=== PATIENT | female | born 1985 | race Caucasian/White ===

== ENCOUNTER 2019-06-11 10:27 | Emergency (ER) | payer MEDICAID ==
[2019-06-11] MEDS ORDERED: HYDROmorphone 1 MG/ML CARPUJECT IM STA (10:53)
[2019-06-11] MEDS ORDERED: ONDANSETRON ODT 4 MG TABLET TL STA (10:53)
[2019-06-11] MEDS ORDERED: ONDANSETRON 4 MG/2 ML VIAL IVP STA (11:59)
[2019-06-11] MEDS ORDERED: HYDROmorphone 1 MG/ML CARPUJECT IVP STA (11:59)
[2019-06-11] MEDS ORDERED: SODIUM CHLORIDE 0.9% 1,000 ML IV ONE (11:59)
[2019-06-11 12:37] LABS: BASOPHILS % (AUTO) 0.3 %; HGB - HEMOGLOBIN 14.8 g/dL (12.0-16.0); LYMPHOCYTES # (AUTO) 0.7 10^3/uL (1.5-3.5); LYMPHOCYTES % (AUTO) 6.3 %; MEAN CORPUSCULAR HEMOGLOBIN 29.2 pg (27.0-31.0); MEAN CORPUSCULAR HGB CONC 34.7 g/dL (32.0-36.0); MEAN CORPUSCULAR VOLUME 84.2 fL (81.0-99.0); MEAN PLATELET VOLUME 10.3 fL (7.9-10.8); MONOCYTES # (AUTO) 0.4 10^3/uL (0.0-1.0); NEUTROPHILS # (AUTO) 10.7 10^3/uL (1.5-6.6); NEUTROPHILS % (AUTO) 90.1 %; RED BLOOD COUNT 5.06 10^6/uL (4.20-5.40); RED CELL DISTRIBUTION WIDTH 12.6 % (12.0-15.0); WHITE BLOOD COUNT 11.8 x10^3/uL (4.8-10.8)
--- NOTE | 2019-06-11 12:49 | ED Physician Documentation ---
PD HPI NVD - Stated complaint Stated Complaint: MED WITHDRAWAL - Chief complaint Chief Complaint: General - History obtained from History obtained from: Patient - History of Present Illness Timing - onset: How many days ago (1) Timing - duration: Days (1) Timing - details: Gradual onset, Still present Associated symptoms: Abdominal pain, Dizzy, Loss of appetite, Other (pain all over) Contributing factors: Other (narcotic withdrawal.) Improved by: Other (nothing) Similar symptoms before: Has not had sx before Recently seen: Clinic - Additonal information Additional information: 33-year-old female on Suboxone has been getting her Suboxone at a clinic in [place] through Dr. Alexander and she has had to move down to [facility] to be in quarantine with her parents and she has run out of her Suboxone she has called her clinic they have told her it is available at [facility] and it is not. She is not able to get a hold of anyone in the clinic. She has been vomiting for 12 hours she has been curled in a position and she feels she needs some fluids and medication. She hurts all over. Review of Systems Constitutional: denies: Fever Eyes: denies: Decreased vision Ears: denies: Ear pain Nose: denies: Rhinorrhea / runny nose, Congestion Throat: denies: Sore throat Cardiac: denies: Chest pain / pressure Respiratory: denies: Dyspnea, Cough GI: reports: Abdominal Pain, Nausea, Vomiting : denies: Dysuria, Frequency Skin: denies: Rash Musculoskeletal: reports: Back pain, Extremity pain, Joint pain Neurologic: denies: Generalized weakness, Focal weakness, Numbness PD PAST MEDICAL HISTORY - Past Medical History Past Medical History: Yes Cardiovascular: None Respiratory: None Endocrine/Autoimmune: None GI: GERD, Ulcers HEENT: None Musculoskeletal: None - Past Surgical History Past Surgical History: Yes HEENT: Tonsil/Adenoidectomy - Present Medications Home Medications: Ambulatory Orders Medication Instructions Recorded Confirmed Citalopram [CeleXA] 10 mg PO DAILY 08/29/15 01/04/16 Buprenorphine HCl/Naloxone HCl 2.5 strip SL DAILY 06/11/19 06/11/19 [Suboxone 8 mg-2 mg Sl Film] - Allergies Allergies/Adverse Reactions: Allergies Allergy/AdvReac Type Severity Reaction Status Date / Time Penicillins AdvReac Unknown Rash Verified 06/11/19 10:34 - Social History Does the pt smoke?: Yes Smoking Status: Current every day smoker Does the pt drink ETOH?: No Does the pt have substance abuse?: Yes - Immunizations Immunizations are current?: Yes - POLST Patient has POLST: No PD ED PE NORMAL - Vitals Vital signs reviewed: Yes (Hypertensive) - General General: Alert and oriented X 3, Other (33-year-old female who is hysterically screaming for pain medication. She has akathetic, appears anxious and is tearful. She is curled in the position and crying) - HEENT HEENT: Atraumatic, PERRL, EOMI - Neck Neck: Supple, no meningeal sign, No bony TTP - Cardiac Cardiac: RRR, No murmur - Respiratory Respiratory: No respiratory distress, Clear bilaterally - Abdomen Abdomen: Soft, Other (Epigastric tenderness) - Back Back: No CVA TTP, No spinal TTP - Derm Derm: Normal color, Warm and dry, No rash - Extremities Extremities: No deformity, No edema - Neuro Neuro: Alert and oriented X 3, wholesale account executive 2-12 intact, No motor deficit, No sensory deficit, Normal speech Eye Opening: Spontaneous Motor: Obeys Commands Verbal: Oriented GCS Score: 15 - Psych Psych: Normal mood, Normal affect Results - Vitals Vitals: Vital Signs - 24 hr 06/11/19 06/11/19 06/11/19 10:35 12:50 13:37 Temperature 36.9 C Heart Rate 80 74 85 Respiratory 22 16 16 Rate Blood Pressure 128/109 H 117/54 L 107/65 O2 Saturation 96 100 98 Oxygen O2 Source Room air - Labs Labs: Laboratory Tests 06/11/19 06/11/19 12:20 13:08 WBC 11.8 H RBC 5.06 Hgb 14.8 Hct 42.6 MCV 84.2 MCH 29.2 MCHC 34.7 RDW 12.6 Plt Count 206 MPV 10.3 Neut # (Auto) 10.7 H Lymph # (Auto) 0.7 L [place] # (Auto) 0.4 Eos # (Auto) 0.0 Baso # (Auto) 0.0 Absolute Nucleated RBC 0.00 Nucleated RBC % 0.0 Manual Slide Review Indicated Sodium 138 Potassium 3.7 Chloride 107 Carbon Dioxide 13 L Anion Gap 18.0 H BUN QNS Creatinine QNS Estimated GFR (MDRD) QNS Glucose 100 Calcium 8.9 Total Bilirubin QNS AST QNS ALT QNS Alkaline Phosphatase 18 L Total Protein QNS Albumin QNS Globulin QNS Albumin/Globulin Ratio QNS Lipase 19 L PD MEDICAL DECISION MAKING - ED course Complexity details: reviewed old records, reviewed results, re-evaluated patient, considered differential, d/w patient ED course: 33-year-old female usually a resident up in [place] is on Suboxone and she has not had her Suboxone for 2 days. I did check her AT sheet and it appears she has been getting Suboxone every 6 days and she subsequently got a prescription on the of this month and it should have run out by the . This is all consistent with the patient's story. She arrives to the emergency department hysterical and crying. She is administered Dilaudid 1 mg IM and Zofran 4 mg sublingual. She has enough relief to be able to give a history and she is requesting fluids. An IV is begun she will get a second milligram of Dilaudid and Zofran and fluid. We do not have Suboxone available here in the emergency department. Our plan today is to give enough relief for the patient to get a chance to get her suboxone. Departure - Departure Disposition: 01 Home, Self Care Clinical Impression: Acute narcotic withdrawal Condition: Stable Instructions: ED Withdrawal Narcotic Follow-Up: Your, doctor [Other] Comments: We are not able to provide a prescription for Suboxone through the emergency department. You will need to follow-up with your regular prescriber for your Suboxone. Discharge Date/Time: 06/11/19 13:44
[2019-06-11 13:04] LABS: PLT - PLATELET COUNT 206 10^3/uL (130-450)
[2019-06-11 13:20] LABS: ALKALINE PHOSPHATASE 18 IU/L (42-121); CALCIUM 8.9 mg/dL (8.5-10.3); CARBON DIOXIDE - CO2 13 mmol/L (21-32); CHLORIDE 107 mmol/L (101-111); GLUCOSE 100 mg/dL (70-100); LIPASE 19 U/L (22-51); SODIUM 138 mmol/L (135-145)
[2019-06-11 13:29] LABS: ALBUMIN QNS g/dL (3.2-5.5); ALBUMIN/GLOBULIN RATIO QNS (1.0-2.2); ALT ALANINE AMINOTRANSFERASE QNS IU/L (10-60); AST ASPARTATE AMINOTRANSFERASE QNS IU/L (10-42); BILIRUBIN,TOTAL QNS mg/dL (0.2-1.0); BUN - BLOOD UREA NITROGEN QNS mg/dL (6-20); CREATININE QNS mg/dL (0.4-1.0); TOTAL PROTEIN QNS g/dL (6.7-8.2)
[2019-06-11] MEDS ORDERED: LORazepam 2 MG/ML VIAL IVP STA (13:29)
[2019-06-11 13:37] VITALS: BP 107/65
== END 2019-06-11 13:44 | disposition home or self-care (01) ==
LOC: ED 10:27
DX: F19.239 Other psychoactive substance dependence with withdrawal, unspecified (principal); F17.200 Nicotine dependence, unspecified, uncomplicated
CPT/HCPCS: 80053; 83690; 85025; 96372; 96374; 96375; 99283; 99284; J1170; J2060; Q0162

== ENCOUNTER 2020-01-05 23:49 | Outpatient (CLI) | payer MEDICAID | END 2020-01-05 23:50 | disposition critical access hospital (66) | LOC: EMS 23:49 | PROVIDERS: ATTEND Surgery | DX: R10.9 Unspecified abdominal pain (principal); R11.10 Vomiting, unspecified | CPT/HCPCS: A0425; A0427; A0999 ==

== ENCOUNTER 2020-01-06 00:10 | Emergency (ER) | payer MEDICAID ==
[2020-01-06] MEDS ORDERED: SODIUM CHLORIDE 0.9% 1,000 ML IV STA (00:18)
[2020-01-06 00:34] LABS: BASOPHILS % (AUTO) 0.5 %; EOSINOPHILS % (AUTO) 0.4 %; HGB - HEMOGLOBIN 12.9 g/dL (12.0-16.0); LYMPHOCYTES # (AUTO) 1.1 10^3/uL (1.5-3.5); LYMPHOCYTES % (AUTO) 14.9 %; MEAN CORPUSCULAR HEMOGLOBIN 29.3 pg (27.0-31.0); MEAN CORPUSCULAR HGB CONC 33.9 g/dL (32.0-36.0); MEAN CORPUSCULAR VOLUME 86.2 fL (81.0-99.0); MEAN PLATELET VOLUME 8.7 fL (7.9-10.8); MONOCYTES # (AUTO) 0.3 10^3/uL (0.0-1.0); MONOCYTES % (AUTO) 3.7 %; NEUTROPHILS # (AUTO) 6.1 10^3/uL (1.5-6.6); NEUTROPHILS % (AUTO) 80.1 %; PLT - PLATELET COUNT 202 10^3/uL (130-450); RED BLOOD COUNT 4.41 10^6/uL (4.20-5.40); RED CELL DISTRIBUTION WIDTH 12.3 % (12.0-15.0); WHITE BLOOD COUNT 7.7 x10^3/uL (4.8-10.8)
[2020-01-06 00:46] LABS: ALBUMIN 4.2 g/dL (3.2-5.5); ALBUMIN/GLOBULIN RATIO 1.3 (1.0-2.2); BILIRUBIN,TOTAL 0.5 mg/dL (0.2-1.0); CALCIUM 8.8 mg/dL (8.5-10.3); CREATININE 0.7 mg/dL (0.4-1.0); TOTAL PROTEIN 7.5 g/dL (6.7-8.2)
[2020-01-06 00:46] LABS: MUDS CUTOFF CONCENTRATIONS CUTOFF CONC BELOW:
[2020-01-06 00:48] LABS: BILIRUBIN,URINE NEGATIVE (NEGATIVE); GLUCOSE, URINE (UA) NEGATIVE (NEGATIVE); KETONES,URINE (UA) TRACE mg/dL (NEGATIVE); LEUKOCYTE ESTERASE, URINE MODERATE (NEGATIVE); NITRITE,URINE NEGATIVE (NEGATIVE); OCCULT BLOOD,URINE TRACE-INTA (NEGATIVE); PH,URINE 5.5 PH (5.0-7.5); PROTEIN,URINE 30 mg/dL (NEGATIVE); UROBILINOGEN,URINE 0.2 (NORMAL) E.U./dL (NORMAL)
--- NOTE | 2020-01-06 00:48 | ED Physician Documentation ---
History of Present Illness - Stated complaint Stated Complaint: ABD PX - Chief complaint Chief Complaint: Abd Pain - Additonal information Additional information: The patient presents with complaints of abdominal pain, nausea and vomiting. Her history is limited as the patient is a vague informant and her responses are tangential. This started suddenly at 2:00 this past afternoon.Asked where the pain is located she points toward her epigastrium.She says that she has been vomiting frequently ranging up nonbloody emesis without coffee-ground appearance. She denies diarrhea. She says that she is chronically constipated. She also reports that she has had 4 bowel surgeries in the past. She reports feeling chilled. Review of the patient's LEEANNE Form reveals that her Suboxone dose has been decreased. Her most recent prescription was from 10 days ago. EMS reportedly felt that she was in opiate withdrawal and treated her with 100 mcg of fentanyl. On presentation here, she is insisting that she needs narcotic pain medications. Review of Systems Constitutional: reports: Chills GI: reports: Abdominal Pain, Nausea, Vomiting, Constipation. denies: Bloody / black stool : denies: Dysuria, Frequency, Hesitancy PD PAST MEDICAL HISTORY - Past Medical History Cardiovascular: None Respiratory: None Endocrine/Autoimmune: None GI: GERD, Ulcers HEENT: None Musculoskeletal: None - Past Surgical History Past Surgical History: Yes HEENT: Tonsil/Adenoidectomy - Present Medications Home Medications: Ambulatory Orders Medication Instructions Recorded Confirmed Citalopram [CeleXA] 10 mg PO DAILY 08/29/15 01/04/16 Buprenorphine HCl/Naloxone HCl 1 strip SL BID 06/11/19 06/11/19 [Suboxone 8 mg-2 mg Sl Film] Mirtazapine 15 mg PO QPM 01/06/20 01/06/20 - Allergies Allergies/Adverse Reactions: Allergies Allergy/AdvReac Type Severity Reaction Status Date / Time Penicillins AdvReac Unknown Rash Verified 06/11/19 10:34 - Social History Does the pt smoke?: Yes Smoking Status: Current every day smoker Does the pt drink ETOH?: No Does the pt have substance abuse?: Yes - Immunizations Immunizations are current?: Yes - POLST Patient has POLST: No PD ED PE NORMAL - HEENT HEENT: Atraumatic, Pharynx benign - Neck Neck: Supple, no meningeal sign, No JVD - Cardiac Cardiac: RRR, No murmur, No gallop, No rub - Respiratory Respiratory: No respiratory distress, Clear bilaterally - Abdomen Abdomen: Normal bowel sounds, Soft, Non tender (When distracted.), Non distended, No organomegaly - Derm Derm: Other ([place].) Results - Vitals Vitals: Vital Signs - 24 hr 01/06/20 01/06/20 01/06/20 00:21 02:39 03:41 Temperature 36.3 C L 36.4 C L Heart Rate 78 102 H 78 Respiratory 24 20 20 Rate Blood Pressure 147/66 H 134/81 H 144/75 H O2 Saturation 99 94 100 Oxygen O2 Source Room air - Labs Labs: Laboratory Tests 01/06/20 01/06/20 01/06/20 00:29 00:29 00:29 WBC 7.7 RBC 4.41 Hgb 12.9 Hct 38.0 MCV 86.2 MCH 29.3 MCHC 33.9 RDW 12.3 Plt Count 202 MPV 8.7 Neut # (Auto) 6.1 Lymph # (Auto) 1.1 L [place] # (Auto) 0.3 Eos # (Auto) 0.0 Baso # (Auto) 0.0 Absolute Nucleated RBC 0.00 Nucleated RBC % 0.0 Sodium 142 Potassium 3.2 L Chloride 107 Carbon Dioxide 24 Anion Gap 11.0 BUN 18 Creatinine 0.7 Estimated GFR (MDRD) 97 Glucose 162 H Lactic Acid Calcium 8.8 Total Bilirubin 0.5 AST 23 ALT 17 Alkaline Phosphatase 47 Total Protein 7.5 Albumin 4.2 Globulin 3.3 Albumin/Globulin Ratio 1.3 Lipase 28 Serum HCG, Qual NEGATIVE Urine Color Urine Clarity Urine pH Ur Specific [place] Urine Protein Urine Glucose (UA) Urine Ketones Urine Occult Blood Urine Nitrite Urine Bilirubin Urine Urobilinogen Ur Leukocyte Esterase Urine RBC Urine WBC Ur Squamous Epith Cells Urine Bacteria Ur Microscopic Review Urine Culture Comments Urine Opiates Screen Ur Oxycodone Screen Urine Methadone Screen Ur Propoxyphene Screen Ur Barbiturates Screen Ur Tricyclics Screen Ur Phencyclidine Scrn Ur Amphetamine Screen U Methamphetamines Scrn U Benzodiazepines Scrn Urine Cocaine Screen U Cannabinoids Screen 01/06/20 01/06/20 00:35 01:20 WBC RBC Hgb Hct MCV MCH MCHC RDW Plt Count MPV Neut # (Auto) Lymph # (Auto) [place] # (Auto) Eos # (Auto) Baso # (Auto) Absolute Nucleated RBC Nucleated RBC % Sodium Potassium Chloride Carbon Dioxide Anion Gap BUN Creatinine Estimated GFR (MDRD) Glucose Lactic Acid 2.1 Calcium Total Bilirubin AST ALT Alkaline Phosphatase Total Protein Albumin Globulin Albumin/Globulin Ratio Lipase Serum HCG, Qual Urine Color YELLOW Urine Clarity CLEAR Urine pH 5.5 Ur Specific [place] >=1.030 H Urine Protein 30 H Urine Glucose (UA) NEGATIVE Urine Ketones TRACE Urine Occult Blood TRACE-INTA Urine Nitrite NEGATIVE Urine Bilirubin NEGATIVE Urine Urobilinogen 0.2 (NORMAL) Ur Leukocyte Esterase MODERATE H Urine RBC 0-5 Urine WBC 4-5 Ur Squamous Epith Cells MANY Squamous H Urine Bacteria Few Ur Microscopic Review INDICATED Urine Culture Comments NOT INDICATED Urine Opiates Screen NEGATIVE Ur Oxycodone Screen NEGATIVE Urine Methadone Screen NEGATIVE Ur Propoxyphene Screen NEGATIVE Ur Barbiturates Screen NEGATIVE Ur Tricyclics Screen NEGATIVE Ur Phencyclidine Scrn NEGATIVE Ur Amphetamine Screen NEGATIVE U Methamphetamines Scrn NEGATIVE U Benzodiazepines Scrn NEGATIVE Urine Cocaine Screen NEGATIVE U Cannabinoids Screen POSITIVE H - Rads (name of study) Dominant pelvis with contrast Radiology: Prelim report reviewed, EMP read contemporaneously PD MEDICAL DECISION MAKING - ED course Complexity details: reviewed old records, reviewed results, re-evaluated patient, considered differential (To include bowel obstruction, pancreatitis, appendicitis, gastritis, colitis, opioid withdrawal, cannabinoid hyperemesis syndrome.), d/w patient ED course: Review of the patient's LEEANNE Form reveals that she has had numerous visits at other facilities for intense abdominal pain, depression, anxiety, narcotic seeking behavior, substance abuse and has had problems with opioid dependence and withdrawal. I counseled the patient regarding my concerns for her. I explained the risks of seeking care at multiple facilities. I strongly encouraged her to follow-up closely with her pain management nurse practitioner and her primary care doctor only. I encouraged her to use the emergency room only when experiencing life or limb threatening symptoms. I suggested that she could benefit from psychological evaluation and mental health counseling as well. Departure - Departure Disposition: 01 Home, Self Care Clinical Impression: Cannabis abuse with unspecified cannabis-induced disorder, Hypokalemia, Opioid dependence with withdrawal, Acute narcotic withdrawal Nausea & vomiting Qualifiers: Vomiting type: unspecified Vomiting Intractability: non-intractable Qualified Code(s): R11.2 - Nausea with vomiting, unspecified Condition: Stable Record reviewed to determine appropriate education?: Yes Instructions: Hypokalemia Dc, ED Marijuana Abuse, ED Nausea Vomiting Follow-Up: [facility] L[facility] [Physician No Access] - Tomorrow Comments: Follow-up with: Dr. Car Alexander [address] [place] [id number] Schedule the first available appointment. No driving, operating heavy machinery, drinking alcohol or using marijuana. You were treated in the emergency room with sedating medications. Discharge Date/Time: 01/06/20 03:44
[2020-01-06 00:49] LABS: CLARITY,URINE CLEAR (CLEAR)
[2020-01-06] MEDS ORDERED: PANTOPRAZOLE 40 MG VIAL IV STA (00:49)
[2020-01-06 00:53] LABS: BACTERIA,URINE Few /HPF (None Seen); RBC,URINE 0-5 /HPF (0-5); SQUAMOUS EPITHELIAL CELL,UR MANY Squamous (<= Few)
[2020-01-06 00:55] LABS: HCG,QUALITATIVE BLOOD NEGATIVE
[2020-01-06 00:58] LABS: AMPHETAMINE SCREEN,URINE NEGATIVE (NEGATIVE); BENZODIAZEPINES SCREEN, URINE NEGATIVE (NEGATIVE); COCAINE SCREEN URINE NEGATIVE (NEGATIVE); METHADONE SCREEN, URINE NEGATIVE (NEGATIVE); METHAMPHETAMINES SCREEN, URINE NEGATIVE (NEGATIVE); OPIATE SCREEN, URINE NEGATIVE (NEGATIVE); OXYCODONE SCREEN, URINE NEGATIVE (NEGATIVE); PROPOXYPHENE SCREEN, URINE NEGATIVE (NEGATIVE); TRICYCLIC ANTIDEPRESSANT,URINE NEGATIVE (NEGATIVE)
[2020-01-06] MEDS ORDERED: IOVERSOL 320 100 ML VIAL IVP ONE ×2 (01:14→02:34)
[2020-01-06] MEDS ORDERED: POTASSIUM CHLOR 10 MEQ/100 ML 10 MEQ/100 ML BAG IV ONE (02:10)
[2020-01-06] MEDS ORDERED: PROMETHAZINE 25 MG/1 ML VIAL IM STA (02:24)
[2020-01-06] MEDS ORDERED: diphenhydrAMINE INJ 50 MG/ML VIAL IVP STA (03:24)
[2020-01-06 03:42] VITALS: BP 144/75
--- NOTE | 2020-01-06 08:20 | CT Report ---
PROCEDURE: Abdomen/Pelvis W INDICATIONS: epigastric and periumbilical pain, prior surgeries CONTRAST: IV CONTRAST: Optiray 320 ml: 100 PO CONTRAST: *NO PO CONTRAST TECHNIQUE: After the administration of intravenous contrast, 5 mm thick sections acquired from the diaphragms to the symphysis. 5 mm thick coronal and sagittal reformats were acquired. For radiation dose reducti on, the following was used: automated exposure control, adjustment of mA and/or kV according to rajesh ent size. COMPARISON: None. FINDINGS: Image quality: Excellent. ABDOMEN: Lung bases: Lung bases are clear. Heart size is normal. Solid organs: Liver and spleen are normal in size and enhancement. Gallbladder is normal. Biliary system is non dilated. Pancreas enhances normally. No adrenal nodules. Kidneys demonstrate normal size and enhancement, without hydronephrosis. Peritoneum and bowel: There is fluid density within the stomach with an air-fluid level. Bowel loops demonstrate normal wall thickness and caliber. No free fluid or air. Nodes and vessels: No retroperitoneal or mesenteric adenopathy by size criteria. Aorta and inferior vena cava are normal in size. Miscellaneous: No ventral hernias. PELVIS: Genitourinary: Bladder wall thickness is normal. Miscellaneous: No inguinal hernias or adenopathy. Bones: No suspicious bony lesions. No vertebral body compression fractures. Mild degenerative disc disease in the lower lumbar spine. IMPRESSION: 1. Fluid filled stomach with an air-fluid level. The findings nonspecific and may be secondary to gas tritis. Recommend clinical correlation. No inflammatory changes in the abdomen or pelvis. No findings to suggest bowel obstruction. No significant discrepancy with the preliminary interpretation. Reviewed by: Lauren Sarah MD on 01/06/2020 8:18 AM PDT Approved by: Lauren Sarah MD on 01/06/2020 8:18 AM PDT Station ID: [id number]
== END 2020-01-06 03:44 | disposition home or self-care (01) ==
LOC: EDUNIT# → ED 00:10
DX: F11.23 Opioid dependence with withdrawal (principal); F12.19 Cannabis abuse with unspecified cannabis-induced disorder; E87.6 Hypokalemia; R11.2 Nausea with vomiting, unspecified; F17.200 Nicotine dependence, unspecified, uncomplicated
CPT/HCPCS: 36415; 74177; 80053; 80306; 81001; 83605; 83690; 84703; 85025; 96365; 96372; 96375; 99284; 99285; J1200; Q9967; 81003; 87086

== ENCOUNTER 2021-03-01 16:50 | Outpatient (CLI) | payer MEDICAID | END 2021-03-01 16:51 | disposition EMS.NT | LOC: EMS 16:50 | DX: R51.9 Headache, unspecified (principal); R22.0 Localized swelling, mass and lump, head ==

== ENCOUNTER 2021-08-29 00:39 | Emergency (ER) | payer MEDICAID ==
--- NOTE | 2021-08-29 03:41 | ED Physician Documentation ---
PD HPI Fall - Stated complaint Stated Complaint: GLF/BACK PAIN - Chief complaint Chief Complaint: Back Pain - History obtained from History obtained from: Patient - History of Present Illness Mechanism of injury: Syncope (she had had an increase in her methadone dose fro 35 to 45 mg and felt lightheaded when stood up quickly. Had not eaten as well. Fell backward and landed to low back. May have had brief syncope of seconds. No headahce. Pain lumbar area radiating to thighs and feeling of numbness back of leg.) Fall distance: Standing position Where injury occurred: Home Timing - onset: Today (this morning, with continued low back pain through the day, worsde this evening.) Injury(ies) location: Back (lumbar area). No: Head, Neck, Chest, Abdomen Quality of pain: Pain, Aching Associated symptoms: No: LOC, AMS, Weakness Worsens with: Movement Contributing factors: No: Anticoagulated, Intoxicated Similar symptoms before: Has not had sx before (no history of back pain.) Recently seen: Clinic (seen for her OUD and had methadone increased slightly couple days ago.) Review of Systems Constitutional: denies: Fever Nose: denies: Rhinorrhea / runny nose, Congestion Throat: denies: Sore throat Cardiac: denies: Chest pain / pressure Respiratory: denies: Cough GI: denies: Abdominal Pain Musculoskeletal: denies: Neck pain Neurologic: reports: Numbness, Near syncope. denies: Generalized weakness, Focal weakness, Seizure, Headache PD PAST MEDICAL HISTORY - Past Medical History Cardiovascular: None Respiratory: None Endocrine/Autoimmune: None GI: GERD, Ulcers HEENT: None Musculoskeletal: None - Past Surgical History Past Surgical History: Yes HEENT: Tonsil/Adenoidectomy - Present Medications Home Medications: Ambulatory Orders Medication Instructions Recorded Confirmed Citalopram [CeleXA] 10 mg PO DAILY 08/29/15 01/04/16 Buprenorphine HCl/Naloxone HCl 1 strip SL BID 06/11/19 06/11/19 [Suboxone 8 mg-2 mg Sl Film] Mirtazapine 15 mg PO QPM 01/06/20 01/06/20 Acetaminophen [Acetaminophen Extra 500 mg PO QID PRN #40 tablet 08/29/21 Strength] Meloxicam [Mobic] 7.5 mg PO BID 10 Days #14 tablet 06/19/22 tiZANidine [Zanaflex] 4 mg PO Q8H PRN #20 tablet 08/29/21 - Allergies Allergies/Adverse Reactions: Allergies Allergy/AdvReac Type Severity Reaction Status Date / Time Penicillins AdvReac Unknown Rash Verified 08/29/21 01:00 - Living Situation Living Situation: reports: With spouse/s.o. Living Arrangement: reports: At home - Social History Does the pt smoke?: Yes Smoking Status: Current every day smoker Does the pt drink ETOH?: No Does the pt have substance abuse?: Yes Substance Use and Type: Other (prior opioid use disorder and being treated with methadone. ) - Immunizations Immunizations are current?: Yes - POLST Patient has POLST: No PD ED PE NORMAL - Vitals Vital signs reviewed: Yes - General General: Alert and oriented X 3, Well developed/nourished, Other (appears significant pain low back with some guarded ROM, but is tossing some side to izzy e on cart due to pain. Moves legs well. ) - HEENT HEENT: Atraumatic - Neck Neck: Supple, no meningeal sign, No bony TTP, No adenopathy - Respiratory Respiratory: No respiratory distress, Other (no chest tenderness) - Abdomen Abdomen: Soft, Non tender - Back Back: Other (tender in mid to right lumbar area. No noted deformity. ) - Derm Derm: Normal color, Warm and dry - Neuro Neuro: Alert and oriented X 3 (crying in pain from low back. ), No motor deficit, No sensory deficit (symmetric sensation to touch in both legs/feet d ermatomal areas and gluteal. ) Results - Vitals Vitals: Vital Signs - 24 hr 08/29/21 08/29/21 08/29/21 00:54 03:42 06:13 Temperature 36.5 C 36.5 C Heart Rate 79 70 65 Respiratory 20 22 12 Rate Blood Pressure 103/80 132/95 H 127/86 H O2 Saturation 96 100 100 Oxygen O2 Source Room air - Rads (name of study) lumbar CT Radiology: Prelim report reviewed (no fractures nor acute injuries. ), EMP read contemporaneously PD MEDICAL DECISION MAKING - ED course Complexity details: reviewed results, re-evaluated patient (improved pain with IM meds. Lying calmly on cart. SOmewhat sleepy but able to sit up on own. ), considered differential, d/w patient Departure - Departure Disposition: 01 Home, Self Care Clinical Impression: Postural dizziness with near syncope Fall Qualifiers: Encounter type: initial encounter Qualified Code(s): W19.XXXA - Unspecified fall, initial encounter Contusion of lower back Qualifiers: Encounter type: initial encounter Qualified Code(s): S30.0XXA - Contusion of lower back and pelvis, initial encounter Condition: Stable Record reviewed to determine appropriate education?: Yes Instructions: ED Sprain Strain Lumbar Follow-Up: [facility] LADD [Primary Care Provider] - Prescriptions: Acetaminophen [Acetaminophen Extra Strength] 500 mg PO QID PRN #40 tablet PRN Reason: Pain Meloxicam [Mobic] 7.5 mg PO BID 10 Days #14 tablet tiZANidine [Zanaflex] 4 mg PO Q8H PRN #20 tablet PRN Reason: Spasms Comments: Your CT scan shows normal lower back spine without any fractures nor disc protrusions. Presume you have some sprain and contusion of the lower back and subsequent pressure on some nerve roots causing your radiating pain. Activity as tolerated. Avoid repetitive bending lifting or activity for several days to week. Acetaminophen 4 times daily for the next 7 to 10 days. Meloxicam anti- inflammatory also twice daily with food for a week. Add tizanidine muscle relaxant for spasms and stiffness. Continue your other usual medicines. Recheck if not improving well over the next several days. Gentle range of motion heat for stretching and stiffness and spasm. Physical treatments such as massage or chiropractic are okay as well. I transmitted your prescriptions to the [facility] pharmacy. Discharge Date/Time: 08/29/21 06:36
[2021-08-29] MEDS ORDERED: KETOROLAC 30 MG/ML VIAL IM STA (03:49)
[2021-08-29] MEDS ORDERED: HYDROmorphone 2 MG/ML VIAL IM STA (03:49)
[2021-08-29 06:14] VITALS: BP 127/86
--- NOTE | 2021-08-29 08:09 | CT Report ---
PROCEDURE: CT lumbar spine without contrast INDICATIONS: fall with pain lumbar area acutely TECHNIQUE: Noncontrast 3 mm thick sections acquired from the T12 level to the sacrum. Sagittal and coronal refo rmats were constructed. For radiation dose reduction, the following was used: automated exposure co ntrol, adjustment of mA and/or kV according to patient size. COMPARISON: None. FINDINGS: Image quality: Excellent. Bones: There is normal bony alignment. No acute vertebral body compression fractures. No suspiciou s lytic or blastic bony lesions. Central spinal caliber is of normal overall caliber. No pars defec ts. At the disc levels, there is mild disc space and narrowing and circumferential disc bulges in the low er lumbar spine at L3-4 and L4-5. Soft tissues: No retroperitoneal masses or hematomas. Visualized aorta is normal in caliber. IMPRESSION: Mild degenerative changes without evidence of fracture or traumatic malalignment Note: Final report is concordant with preliminary report provided by [employer] Reviewed by: Priyank Cast MD on 08/29/2021 7:07 AM HERIBERTO Approved by: Priyank Cast MD on 08/29/2021 7:07 AM HERIBERTO Station ID: [id number]
== END 2021-08-29 06:36 | disposition home or self-care (01) ==
LOC: ED 00:39
DX: S30.0XXA Contusion of lower back and pelvis, initial encounter (principal); W19.XXXA Unspecified fall, initial encounter; R55 Syncope and collapse; R42 Dizziness and giddiness; F17.200 Nicotine dependence, unspecified, uncomplicated
CPT/HCPCS: 72131; 93005; 96372; 99282; 99284; J1170

== ENCOUNTER 2022-02-04 05:00 | Outpatient (CLI) | payer MEDICAID | END 2022-02-04 23:59 | disposition short-term general hospital (02) | LOC: EMS 05:00 | DX: S99.911A Unspecified injury of right ankle, initial encounter (principal); M25.551 Pain in right hip; R10.2 Pelvic and perineal pain; M54.50 Low back pain, unspecified; V47.5XXA Car driver injured in collision with fixed or stationary object in traffic accident, initial encounter; Y92.410 Unspecified street and highway as the place of occurrence of the external cause; Z72.89 Other problems related to lifestyle | CPT/HCPCS: A0425; A0427; A0999 ==

== ENCOUNTER 2022-10-14 14:18 | Outpatient (CLI) | payer MEDICAID | END 2022-10-14 23:59 | disposition critical access hospital (66) | LOC: EMS 14:18 | DX: R10.84 Generalized abdominal pain (principal); R11.10 Vomiting, unspecified; R46.89 Other symptoms and signs involving appearance and behavior; F11.90 Opioid use, unspecified, uncomplicated | CPT/HCPCS: A0425; A0429; A0999 ==

== ENCOUNTER 2022-10-14 14:48 | Emergency (ER) | payer MEDICAID ==
--- NOTE | 2022-10-14 14:53 | ED Physician Documentation ---
PD HPI NVD - Stated complaint Stated Complaint: WITHDRAWL - History obtained from History obtained from: Patient - History of Present Illness Timing - onset: How many hours ago (1), Today Timing - details: Abrupt onset, Still present (The patient states she was seen at a substance abuse clinic and prescribed Suboxone twice daily. She was to wait until she had some increased withdrawal symptoms to start it. However she started it anyway and developed anxiety tremors nausea and vomiting abruptly.) Associated symptoms: Abdominal pain, Other (nausea and vomiting, anxiety, shaky.) Contributing factors: Other (Opioid use disorder with fentanyl longer-term. Intermittent occasional methamphetamines. She states she smokes them. No consistent IV use.) Similar symptoms before: Diagnosis (has had regular withdrawal in the past, but not this abrupt.) Recently seen: Clinic (Substance use clinic with MAT initiated with Suboxone script today.) Review of Systems Constitutional: denies: Fever, Chills Nose: denies: Rhinorrhea / runny nose, Congestion Throat: denies: Sore throat Respiratory: denies: Cough GI: reports: Abdominal Pain, Nausea, Vomiting. denies: Diarrhea Skin: denies: Rash, Lesions PD PAST MEDICAL HISTORY - Past Medical History Cardiovascular: None Respiratory: None Endocrine/Autoimmune: None GI: GERD, Ulcers HEENT: None Musculoskeletal: None - Past Surgical History Past Surgical History: Yes HEENT: Tonsil/Adenoidectomy - Present Medications Home Medications: Ambulatory Orders Medication Instructions Recorded Confirmed Citalopram [CeleXA] 10 mg PO DAILY 08/29/15 01/04/16 Buprenorphine HCl/Naloxone HCl 1 strip SL BID 06/11/19 06/11/19 [Suboxone 8 mg-2 mg Sl Film] Mirtazapine 15 mg PO QPM 01/06/20 01/06/20 Acetaminophen [Acetaminophen Extra 500 mg PO QID PRN #40 tablet 08/29/21 Strength] Meloxicam [Mobic] 7.5 mg PO BID 10 Days #14 tablet 08/29/21 tiZANidine [Zanaflex] 4 mg PO Q8H PRN #20 tablet 08/29/21 LORazepam [Ativan] 1 mg PO BID PRN #12 tablet 10/14/22 Ondansetron Odt [Zofran] 4 mg TL Q6H PRN #10 tablet 10/14/22 - Allergies Allergies/Adverse Reactions: Allergies Allergy/AdvReac Type Severity Reaction Status Date / Time Penicillins AdvReac Unknown Rash Verified 10/14/22 14:51 - Living Situation Living Arrangement: reports: At home - Social History Does the pt smoke?: Yes Smoking Status: Current every day smoker Does the pt drink ETOH?: No Does the pt have substance abuse?: Yes Substance Use and Type: Meth, Other (fentanyl) - Immunizations Immunizations are current?: Yes - POLST Patient has POLST: No PD ED PE NORMAL - Vitals Vital signs reviewed: Yes - General General: Well developed/nourished, Other (The patient is very anxious and agitated with yelling out at times but not aggressive. She is having repeated vomiting and continue with nausea and general abdominal pain and cramping.) - Neck Neck: Supple, no meningeal sign, No adenopathy - Cardiac Cardiac: RRR, No murmur - Respiratory Respiratory: Clear bilaterally - Abdomen Abdomen: Normal bowel sounds, Soft, Non distended, No organomegaly, Other (Tender in the mid to upper abdomen without guarding or percussion tenderness.) - Derm Derm: Normal color. No: Warm and dry (mild diaphoresis) - Neuro Neuro: Alert and oriented X 3, No motor deficit Results - Vitals Vitals: Vital Signs - 24 hr 10/14/22 10/14/22 10/14/22 14:51 16:30 17:57 Temperature 36.8 C 36.4 C L Heart Rate 83 61 103 H Respiratory 22 18 18 Rate Blood Pressure 150/90 H 141/118 H O2 Saturation 100 98 99 Oxygen O2 Source Room air - Labs Labs: Laboratory Tests 10/14/22 10/14/22 16:25 16:25 WBC 9.7 RBC 5.38 Hgb 14.6 Hct 43.3 MCV 80.5 L MCH 27.1 MCHC 33.7 RDW 12.0 Plt Count 303 MPV 8.9 Neut # (Auto) 8.2 H Lymph # (Auto) 1.1 L [place] # (Auto) 0.3 Eos # (Auto) 0.0 Baso # (Auto) 0.0 Absolute Nucleated RBC 0.00 Nucleated RBC % 0.0 Sodium 137 Potassium 3.5 Chloride 104 Carbon Dioxide 27 Anion Gap 6.0 BUN 13 Creatinine 0.7 Estimated GFR (MDRD) 96 Glucose 123 H Calcium 9.4 Total Bilirubin 0.5 AST 18 ALT 15 Alkaline Phosphatase 88 Total Protein 7.6 Albumin 4.1 Globulin 3.5 Albumin/Globulin Ratio 1.2 Lipase 18 PD Medical Decision Making - ED course Complexity details: considered differential, d/w patient ED course: The patient had last used fentanyl earlier today and started the Suboxone this afternoon after it was prescribed. She essentially created a precipitated withdrawal and is having significant symptoms. She states she had taken meth earlier today 2 so probably has some element from that. At this point we can help with the precipitated withdrawal by increasing the buprenorphine dose to better saturate receptors. She had difficult veins for IV and was moving around a lot so initial IV attempt was unsuccessful by nursing. We gave the buprenorphine 0.3 mg IM instead along with Inapsine for nausea. In this did provide moderate improvement in her symptoms but still having a fair amount of nausea and agitation. Repeat dose of buprenorphine 0.3 mg IM was given with further improvement. She was not having any vomiting at this time and less anxious and thrashing. However she is still for felt fairly anxious. This may be psychogenic of course but consider some element from the meth as well. She is awake and conversant. I feel comfortable at this point given a small dose of diazepam benzodiazepine to help with her agitation symptoms. We will watch her carefully for any respiratory suppression for an hour or more. Given 2.5 mg Diazepam with improvemnt in restless/anxiety. No respiratory compromise. Ambulatory in ER. Subsequently now that her buprenorphine levels are improved, she should not have further withdrawal symptoms from the opioids. We could prescribe as short-term dosing for nausea medicine and benzodiazepine. Otherwise I did tennis coach her to avoid recreational drugs including meth and fentanyl. She states she has a weeks worth of the Suboxone and has a follow-up appointment weekly with the substance abuse clinic. Departure - Departure Disposition: 01 Home, Self Care Clinical Impression: Opiate withdrawal, Nausea and vomiting Condition: Stable Record reviewed to determine appropriate education?: Yes Prescriptions: LORazepam [Ativan] 1 mg PO BID PRN #12 tablet PRN Reason: Anxiety Ondansetron Odt [Zofran] 4 mg TL Q6H PRN #10 tablet PRN Reason: Nausea / Vomiting Comments: Frequent fluids and try to maintain good hydration. Your symptoms will continue improving both with the medication and as the fentanyl wears off. Continue with the Suboxone twice daily as prescribed by the substance abuse clinic. Additionally can use ondansetron if needed for nausea. Continue with your other prescribed medications. In the short-term you can add lorazepam 1 tablet twice daily if needed for anxiety or agitation. This could be resulting from the concomitant use of meth in addition to the fentanyl. Certainly try to avoid all the recreational drugs. Follow-up with the clinic next week as planned. Return if needed. I sent your prescription to [facility] pharmacy. Forms: PCP List Discharge Date/Time: 10/14/22 18:27
[2022-10-14] MEDS ORDERED: SODIUM CHLORIDE 0.9% 1,000 ML IV STA (15:02)
[2022-10-14] MEDS ORDERED: DROPERIDOL 5 MG/2 ML VIAL IVP STA (15:02)
[2022-10-14] MEDS ORDERED: BUPRENORPHINE 0.3 MG/ML VIAL IVP ONE (15:02)
[2022-10-14] MEDS ORDERED: BUPRENORPHINE 0.3 MG/ML VIAL IM ONE ×2 (15:27→16:47)
[2022-10-14] MEDS ORDERED: DROPERIDOL 5 MG/2 ML VIAL IM STA (15:27)
[2022-10-14 16:30] VITALS: BP 141/118
[2022-10-14 16:33] LABS: BASOPHILS % (AUTO) 0.3 %; EOSINOPHILS % (AUTO) 0.3 %; HCT - HEMATOCRIT 43.3 % (37.0-47.0); HGB - HEMOGLOBIN 14.6 g/dL (12.0-16.0); LYMPHOCYTES # (AUTO) 1.1 10^3/uL (1.5-3.5); LYMPHOCYTES % (AUTO) 11.6 %; MEAN CORPUSCULAR HEMOGLOBIN 27.1 pg (27.0-31.0); MEAN CORPUSCULAR HGB CONC 33.7 g/dL (32.0-36.0); MEAN CORPUSCULAR VOLUME 80.5 fL (81.0-99.0); MEAN PLATELET VOLUME 8.9 fL (7.9-10.8); MONOCYTES # (AUTO) 0.3 10^3/uL (0.0-1.0); MONOCYTES % (AUTO) 2.8 %; NEUTROPHILS # (AUTO) 8.2 10^3/uL (1.5-6.6); NEUTROPHILS % (AUTO) 84.8 %; PLT - PLATELET COUNT 303 10^3/uL (130-450); RED BLOOD COUNT 5.38 10^6/uL (4.20-5.40); WHITE BLOOD COUNT 9.7 x10^3/uL (4.8-10.8)
[2022-10-14 16:51] LABS: ALBUMIN 4.1 g/dL (3.2-5.5); ALBUMIN/GLOBULIN RATIO 1.2 (1.0-2.2); BILIRUBIN,TOTAL 0.5 mg/dL (0.2-1.0); CALCIUM 9.4 mg/dL (8.5-10.3); CREATININE 0.7 mg/dL (0.6-1.3); POTASSIUM 3.5 mmol/L (3.5-4.5); TOTAL PROTEIN 7.6 g/dL (6.4-8.9)
[2022-10-14] MEDS ORDERED: diazePAM INJ 5 MG/ML SYRINGE IM STA (17:28)
== END 2022-10-14 18:27 | disposition home or self-care (01) ==
LOC: ED 14:48
DX: F11.23 Opioid dependence with withdrawal (principal); F17.200 Nicotine dependence, unspecified, uncomplicated
CPT/HCPCS: 36415; 80053; 83690; 85025; 96372; 99283; 99284; J0592

== ENCOUNTER 2023-04-28 23:57 | Outpatient (CLI) | payer MEDICAID | END 2023-04-28 23:59 | disposition critical access hospital (66) | LOC: EMS 23:57 | DX: S00.00XA Unspecified superficial injury of scalp, initial encounter (principal); Y08.89XA Assault by other specified means, initial encounter | CPT/HCPCS: A0425; A0429; A0999 ==

== ENCOUNTER 2023-04-29 00:27 | Emergency (ER) | payer MEDICAID ==
[2023-04-29 00:44] VITALS: O2SAT 98
[2023-04-29] MEDS: LIDOCAINE 2%-EPI 1:100000 20 ML MDV SUBQ STA (01:49)
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
[2023-04-29] MEDS: TETANUS/DIPHTHERIA/PERTUSSIS 0.5 ML SYRINGE IM ONE (01:58)
[2023-04-29 02:13] VITALS: BP 150/101
== END 2023-04-29 02:04 | disposition home or self-care (01) ==
LOC: EDUNIT# → ED 00:27
DX: S01.01XA Laceration without foreign body of scalp, initial encounter (principal); W22.8XXA Striking against or struck by other objects, initial encounter; F17.200 Nicotine dependence, unspecified, uncomplicated; Z23 Encounter for immunization
CPT/HCPCS: 12002; 81025; 90471; 99283